=== PATIENT | female | born 1955 | race Two or more races ===

== ENCOUNTER 2016-06-28 15:46 | Emergency (ER) | payer MEDICAID ==
[~2016-06-28] VITALS: Ht 152.4 cm; Wt 70.3 kg
[2016-06-28] MEDS ORDERED: VALS1TAB4 PO (16:04)
[2016-06-28] MEDS ORDERED: ASPI81TA2 PO (16:04)
[2016-06-28] MEDS ORDERED: AMLO10TA2 PO (16:04)
[2016-06-28 16:09] LABS: BASOPHILS # (AUTO) 0.2 /CMM (0.0-0.2); DIFF TOTAL % 100 %; EOSINOPHILS % (AUTO) 0.4 % (0.0-6.0); HEMATOCRIT 38 % (33-45); LYMPHOCYTES # (AUTO) 2.1 /CMM (0.8-4.8); LYMPHOCYTES % (AUTO) 20.6 % (20.0-44.0); MEAN CORPUSCULAR HEMOGLOBIN 29 PG (26.0-33.0); MEAN CORPUSCULAR HGB CONC 34 g/dl (31.0-36.0); MEAN CORPUSCULAR VOLUME 86 fL (82-100); MONOCYTES # (AUTO) 0.6 /CMM (0.1-1.30); MONOCYTES % (AUTO) 5.7 % (2.0-12.0); NEUTROPHILS # (AUTO) 7.1 /CMM (1.8-8.9); NEUTROPHILS % (AUTO) 71.3 % (43.0-81.0); PLATELET COUNT (AUTO) 290 /CMM (150-450); RED BLOOD CELL COUNT(AUTO) 4.42 MIL/uL (4.0-5.2)
[2016-06-28 16:17] LABS: ANION GAP 13 (5-14); CALCIUM, SERUM 9.8 mg/dL (8.5-10.1); CARBON DIOXIDE 29 mmol/L (21-32); CHLORIDE 98 mmol/L (98-107); CREATININE 0.8 mg/dL (0.6-1.3); GFR 72 mL/min (>60); GLUCOSE 143 mg/dL (74-106); POTASSIUM 4.2 mmol/L (3.5-5.1); SODIUM SERUM 135 mmol/L (136-145); UREA NITROGEN, BLOOD 13 mg/dL (7-18)
[2016-06-28 16:22] LABS: INR 0.97 (0.87-1.13); PROTHROMBIN TIME 10.2 SECS (9.5-12.7)
[2016-06-28 16:25] LABS: TROPONIN I < 0.017 ng/mL (0.00-0.056)
[2016-06-28 17:08] VITALS: BP 140/68
== END 2016-06-28 17:10 | disposition home or self-care (01) ==
LOC: ER 15:49
DX: R53.1 Weakness (principal); I10 Essential (primary) hypertension; R79.1 Abnormal coagulation profile; R51 Headache; Z86.73 Personal history of transient ischemic attack (TIA), and cerebral infarction without residual deficits; Z79.82 Long term (current) use of aspirin
CPT/HCPCS: 36415; 70450; 71010; 80048; 82962; 84484; 85025; 85730; 93005; 99285; A4606; Z7610; 87081-TC